=== PATIENT | female | born 1960 | race Native Hawaiian/Other Pacific Islander ===

== ENCOUNTER 2017-03-10 14:07 | Emergency (ER) | payer OTHER, MEDICAID ==
[2017-03-10 14:26] VITALS: RESP 16; TEMP 97.5
--- NOTE | 2017-03-10 14:34 | CPEKG ---
Heart Rate: 77 RR Interval: 779 P-R Interval: 180 QRSD Interval: 82 QT Interval: 384 QTC Interval: 435 P [place]: 23 QRS [place]: -6 T Wave [place]: 40 EKG Severity - NORMAL ECG - EKG Impression: SINUS RHYTHM Electronically Signed By: Jon Gerardo 10-Mar-2017 15:14:59
[2017-03-10] MEDS ORDERED: NS 1,000 ML IV ONE (15:11)
[2017-03-10] MEDS ORDERED: ASPIRIN 81 MG CHEWABLE TAB PO ONE (15:11)
[2017-03-10] MEDS ORDERED: HYDROmorphONE/DILAUDID 1 MG/ML SYR IVP ONE (15:12)
[2017-03-10 15:16] LABS: % IMMATURE GRANULYOCYTES 0.2 % (0.0-1.1); ABSOLUTE IMMATURE GRANULOCYTES 0.01 10^3/uL (0.00-0.10); ADD DIFF? NO; ADD MORPH? NO; ADD SCAN? NO; ATYPICAL LYMPHOCYTE FLAG 0 (0-99); FRAGMENT RBC FLAG 0 (0-99); HEMATOCRIT 40.5 % (38.0-47.0); LEFT SHIFT FLG 0 (0-99); LIPEMIA HEMOLYSIS FLAG 90 (0-99); MEAN CELL HEMOGLOBIN 30.6 pg (27.9-34.1); MEAN CELL HEMOGLOBIN CONCENTR. 34.6 g/dL (32.4-36.7); MEAN CELL VOLUME 88.4 fL (81.5-99.8); MEAN PLATELET VOLUME 10.2 fL (8.7-11.7); PLATELET CLUMPS FLAG 0 (0-99); PLATELET COUNT 192 10^3/uL (150-400); RED BLOOD CELL COUNT 4.58 10^6/uL (4.18-5.33)
--- NOTE | 2017-03-10 15:18 | EDPHY ---
H & P Stated Complaint: left hand numb and cramping and face numb x ~ 1 week. Time Seen by Provider: 03/10/17 14:59 HPI/ROS: CHIEF COMPLAINT: Left arm tingling and spasming HISTORY OF PRESENT ILLNESS: Patient is a 56-year-old female who comes to the emergency department complaining of left arm paresthesias intermittently over the last week. Currently she is asymptomatic. Today her episode was worse than previous and also included hyperventilation and carpopedal spasms. It was in both hands but worse in the left. She has never had these symptoms before. She denies any cardiac or pulmonary history. She did have a complicated course in 2013 after an abscessed pancreas and prolonged stay ICU but states that she has recovered well from this. She has not had a fever. She has not been ill recently. She denies nausea vomiting or diaphoresis. She states that the paresthesias extend up to her shoulder and neck. She denies any weakness during the episodes. She denies any specific positional changes or inciting factors. REVIEW OF SYSTEMS: Constitutional: denies: chills, fever, recent illness, recent injury EENTM: denies: blurred vision, double vision, nose congestion Respiratory: denies: cough, shortness of breath Cardiac: denies: chest pain, irregular heart rate, lightheadedness, palpitations Gastrointestinal/Abdominal: denies: abdominal pain, diarrhea, nausea, vomiting, blood streaked stools Genitourinary: denies: dysuria, frequency, hematuria, pain Musculoskeletal: denies: joint pain, muscle pain Skin: denies: lesions, rash, jaundice, bruising Neurological: See HPI Hematologic/Lymphatic: denies: blood clots, easy bleeding, easy bruising Immunologic/allergic: denies: HIV/AIDS, transplant EXAM: GENERAL: Well-appearing, well-nourished and in no acute distress. HEAD: Atraumatic, normocephalic. EYES: Pupils equal round and reactive to light, extraocular movements intact, sclera anicteric, conjunctiva are normal. ENT: TMs normal, nares patent, oropharynx clear without exudates. Moist mucous membranes. NECK: Normal range of motion, supple without lymphadenopathy or JVD. LUNGS: Breath sounds clear to auscultation bilaterally and equal. No wheezes rales or rhonchi. HEART: Regular rate and rhythm without murmurs, rubs or gallops. ABDOMEN: Soft, nontender, normoactive bowel sounds. No guarding, no rebound. No masses appreciated. BACK: No CVA tenderness, no spinal tenderness, step-offs or deformities EXTREMITIES: Normal range of motion, no pitting or edema. No clubbing or cyanosis. NEUROLOGICAL: Cranial nerves II through XII grossly intact. Normal speech, normal gait. 5/5 strength, normal movement in all extremities, normal sensation , normal reflexes PSYCH: Normal mood, normal affect. SKIN: Warm, dry, normal turgor, no visible rashes or lesions. Source: Patient Exam Limitations: No limitations - Personal History Current Tetanus/Diphtheria Vaccine: Unsure Current Tetanus Diphtheria and Acellular Pertussis (TDAP): Unsure - Medical/Surgical History Hx Asthma: Yes Hx Chronic Respiratory Disease: No Hx Diabetes: No Hx Cardiac Disease: No Hx Renal Disease: No Hx Cirrhosis: No Hx Alcoholism: No Hx HIV/AIDS: No Other PMH: pancreatitis 2013, hospitalized for 6 months. depression. trach. htn - Family History Significant Family History: No pertinent family hx - Social History Smoking Status: Former smoker Alcohol Use: Sober Drug Use: None Constitutional: Initial Vital Signs Temperature (C) 36.4 C 03/10/17 14:21 Heart Rate 80 03/10/17 14:21 Respiratory Rate 16 03/10/17 14:21 Blood Pressure 132/94 H 03/10/17 14:21 O2 Sat (%) 95 03/10/17 14:21 O2 Delivery Mode Room Air Allergies/Adverse Reactions: morphine Allergy (Verified 03/10/17 14:25) Home Medications: Medication Instructions Recorded Seraquel 02/25/11 Propranolol Sr [Inderal LA 60mg 60 mg PO 12/17/12 (RX)] Omeprazole 03/10/17 PHENTERMINE HCL 03/10/17 QUEtiapine FUMARATE 03/10/17 Topiramate 03/10/17 hydrOXYzine HCL 03/10/17 Medical Decision Making - Diagnostics EKG Interpretation: An EKG obtained and was read and documented in trace view. Please see trace view for full reading and report. Imaging Results: Imaging Impressions Chest X-Ray 03/10/17 15:12 Impression: No evidence for an acute cardiopulmonary abnormality. Chronic findings, as above. ED Course/Re-evaluation: 4:00 p.m. we discussed the patient's test results. She is currently asymptomatic. We discussed the possibilities. She states that she has chronic low back pain and some radiculopathy there. She may have some radiculopathy in her neck as well. No signs of stroke. NIH stroke score 0. No chest pain or shortness of breath. At this time she is eager to go home. Recommended follow up with her back specialist. She is agreeable with this. We also discussed techniques to prevent hyperventilation. Differential Diagnosis: Partial list of the Differential diagnosis considered include but were not limited to; radiculopathy, peripheral neuropathy, anxiety and although unlikely based on the history and physical exam, I also considered CVA, acute coronary disease, PE, electrolyte abnormality. I discussed these differential diagnoses and the plan with the patient as well as the usual and expected course. The patient understands that the diagnosis is provisional and that in medicine we are not always correct and that further workup is often warranted. Usual and customary warnings were given. All of the patient's questions were answered. The patient was instructed to return to the emergency department should the symptoms at all worsen or return, otherwise to followup with the physician as we discussed. - Data Points Laboratory Results: Laboratory Results 03/10/17 15:00 03/10/17 15:00 03/10/17 03/10/17 03/10/17 15:00 15:00 15:00 WBC 5.94 10^3/uL 10^3/uL (3.80-9.50) RBC 4.58 10^6/uL 10^6/uL (4.18-5.33) Hgb 14.0 g/dL g/dL (12.6-16.3) Hct 40.5 % % (38.0-47.0) MCV 88.4 fL fL (81.5-99.8) MCH 30.6 pg pg (27.9-34.1) MCHC 34.6 g/dL g/dL (32.4-36.7) RDW 13.0 % % (11.5-15.2) Plt Count 192 10^3/uL 10^3/uL (150-400) MPV 10.2 fL fL (8.7-11.7) Neut % (Auto) 64.4 % % (39.3-74.2) Lymph % (Auto) 27.1 % % (15.0-45.0) [place] % (Auto) 5.1 % % (4.5-13.0) Eos % (Auto) 2.9 % % (0.6-7.6) Baso % (Auto) 0.3 % % (0.3-1.7) Nucleat RBC Rel Count 0.0 % % (0.0-0.2) Absolute Neuts (auto) 3.83 10^3/uL 10^3/uL (1.70-6.50) Absolute Lymphs (auto) 1.61 10^3/uL 10^3/uL (1.00-3.00) Absolute Monos (auto) 0.30 10^3/uL 10^3/uL (0.30-0.80) Absolute Eos (auto) 0.17 10^3/uL 10^3/uL (0.03-0.40) Absolute Basos (auto) 0.02 10^3/uL 10^3/uL (0.02-0.10) Absolute Nucleated RBC 0.00 10^3/uL 10^3/uL (0-0.01) Immature Gran % 0.2 % % (0.0-1.1) Immature Gran # 0.01 10^3/uL 10^3/uL (0.00-0.10) PT 14.0 SEC SEC (12.0-15.0) INR 1.11 (0.83-1.16) APTT 31.2 SEC SEC (23.0-38.0) D-Dimer 0.37 ug/mLFEU ug/mLFEU (0.00-0.50) Sodium 142 mEq/L mEq/L (134-144) Potassium 3.8 mEq/L mEq/L (3.5-5.2) Chloride 106 mEq/L mEq/L (97-110) Carbon Dioxide 21 mEq/l L mEq/l (22-31) Anion Gap 15 mEq/L mEq/L (8-16) BUN 12 mg/dL mg/dL (7-23) Creatinine 1.0 mg/dL mg/dL (0.6-1.0) Estimated GFR 58 Glucose 102 mg/dL H mg/dL (70-100) Calcium 8.5 mg/dL mg/dL (8.5-10.4) Troponin I < 0.012 ng/mL ng/mL (0-0.034) Medications Given: Discontinued Medications Aspirin (Aspirin) 324 mg PO EDNOW ONE Stop: 03/10/17 15:12 Last Admin: 03/10/17 15:15 Dose: 324 mg Hydromorphone HCl (Dilaudid) 0.5 mg IVP EDNOW ONE Stop: 03/10/17 15:13 Last Admin: 03/10/17 15:15 Dose: 0.5 mg Sodium Chloride (Ns) 1,000 mls @ 0 mls/hr IV ONCE ONE PRN Reason: Wide Open Stop: 03/10/17 15:12 Last Admin: 03/10/17 15:15 Dose: 1,000 mls Departure - Departure Disposition: Home, Routine, Self-Care Clinical Impression: Paresthesia, Hyperventilation Condition: Fair Instructions: Hyperventilation (ED), Paresthesia (ED) Referrals: NADER CONDE,Karina [Primary Care Provider] - As per Instructions
[2017-03-10 15:20] LABS: INR 1.11 (0.83-1.16)
[2017-03-10 15:21] LABS: APTT 31.2 SEC (23.0-38.0)
[2017-03-10 15:22] LABS: ANION GAP 15 mEq/L (8-16); CALCIUM 8.5 mg/dL (8.5-10.4); CARBON DIOXIDE 21 mEq/l (22-31); CHLORIDE 106 mEq/L (97-110); GLOMERULAR FILTRATION RATE 58; GLUCOSE 102 mg/dL (70-100); POTASSIUM 3.8 mEq/L (3.5-5.2); SODIUM 142 mEq/L (134-144)
[2017-03-10 15:34] LABS: TROPONIN I < 0.012 ng/mL (0-0.034)
[2017-03-10 16:19] VITALS: BP 126/80; PULSE 75; O2SAT 94
== END 2017-03-10 16:07 | disposition home or self-care (01) ==
LOC: CED 14:07
DX: R20.2 Paresthesia of skin (principal); R06.4 Hyperventilation; J45.909 Unspecified asthma, uncomplicated; I10 Essential (primary) hypertension; Z87.891 Personal history of nicotine dependence
CPT/HCPCS: 71020; 93005; 96361; 96374; 99285; J1170; 80048-PO; 84484-PO; 85025-PO; 85378-PO; 85610-PO; 85730-PO

== ENCOUNTER 2018-02-02 16:50 | Emergency (ER) | payer OTHER, MEDICAID ==
--- NOTE | 2018-02-02 17:11 | EDPHY ---
H & P Time Seen by Provider: 02/02/18 17:10 HPI/ROS: Chief complaint. Burning with urination HPI. 57-year-old female presents with urinary frequency and burning with urination for 1 week. She had been treated for vaginal candidiasis about 1 month ago. Now she has had the burning and urinary frequency. She saw her PCP several days ago and apparently the urinalysis look fairly normal. She was started on nitrofurantoin and then discontinued by her PCP as the urine seem to look okay. No fever. No flank pain. No vomiting. Similar symptoms with UTIs in the past. ROS Constitutional. no fever/chills, no weakness Eyes. no problems with vision ENT. no sore throat, no nasal drainage Cardiovascular. no chest pain Respiratory. no shortness of breath, no cough Abdominal. no abdominal pain, no nausea/vomiting, no diarrhea . Urinary frequency and dysuria MS. no calf pain/swelling, no neck/back pain, no joint pain Skin. no rash Lymph. no swollen glands Neuro. no headache, no dizziness, no difficulty walking or with speech Past Medical/Surgical History: Pancreatitis, depression, hypertension Social History: Single, nonsmoker, no alcohol Smoking Status: Former smoker Physical Exam: General Appearance: Alert well-developed female mild distress vital signs are stable Eyes: Pupils equal and round no pallor or injection. ENT, Mouth: Mucous membranes are moist. Respiratory: There are no retractions, lungs are clear to auscultation. Cardiovascular: Regular rate and rhythm. Gastrointestinal: Mild suprapubic tenderness. No flank tenderness. No masses. Normal bowel sounds Neurological: Awake and alert, sensory and motor exams grossly normal. Skin: Warm and dry, no rashes. Musculoskeletal: Neck is supple nontender. Extremities symmetrical, full range of motion. Psychiatric: Patient is oriented X 3, there is no agitation. Constitutional: Initial Vital Signs Temperature (C) 36.9 C 02/02/18 17:01 Heart Rate 77 02/02/18 17:01 Respiratory Rate 16 02/02/18 17:01 Blood Pressure 142/98 H 02/02/18 17:01 O2 Sat (%) 98 02/02/18 17:01 O2 Delivery Mode Room Air Allergies/Adverse Reactions: morphine Allergy (Verified 02/02/18 17:06) Home Medications: Medication Instructions Recorded Propranolol Sr [Inderal LA 60mg 60 mg PO 12/17/12 (RX)] Omeprazole 03/10/17 QUEtiapine FUMARATE 03/10/17 Topiramate 03/10/17 hydrOXYzine HCL 03/10/17 Cephalexin [Keflex (*)] 500 mg PO TID #21 cap 02/02/18 Hycodan Syrup (*) 02/02/18 Lexapro 10 MG 02/02/18 Miconazole 02/02/18 Miconazole Nitrate [Monistat 7 100 mg VAG HS #7 supp 02/02/18 supp (*)] Nitrofurantoin 02/02/18 Medical Decision Making ED Course/Re-evaluation: On re-evaluation at 6:27 p.m. Patient is stable. Patient and I discussed laboratory evaluation, treatment plan including criteria for return importance of follow-up and further evaluation. She expresses understanding and agreement Differential Diagnosis: I considered urinary tract infection, STD, yeast infection - Data Points Laboratory Results: 02/02/18 02/02/18 18:00 17:25 Urine Color YELLOW Urine Appearance HAZY Urine pH 6.5 (5.0-7.5) Ur Specific [place] 1.020 (1.002-1.030) Urine Protein NEGATIVE (NEGATIVE) Urine Ketones NEGATIVE (NEGATIVE) Urine Blood NEGATIVE (NEGATIVE) Urine Nitrate NEGATIVE (NEGATIVE) Urine Bilirubin NEGATIVE (NEGATIVE) Urine Urobilinogen 2.0 EU H EU (0.2-1.0) Ur Leukocyte Esterase 1+ H (NEGATIVE) Urine RBC OCCASIONAL /hpf /hpf (0-3) Urine WBC 5-10 /hpf H /hpf (0-3) Ur Epithelial Cells 2+ /lpf H /lpf (NONE-1+) Urine Bacteria 2+ /hpf H /hpf (NONE SEEN) Urine Mucus 2+ /lpf H /lpf (NONE-1+) Urine Yeast OCCASIONAL /hpf H /hpf (NONE SEEN) Urine Glucose NEGATIVE (NEGATIVE) C.trachomatis RNA (TMA) Pending N.gonorrhoeae RNA (TMA) Pending Medications Given: Discontinued Medications Phenazopyridine HCl (Pyridium) 200 mg PO EDNOW ONE Stop: 02/02/18 17:18 Last Admin: 02/02/18 17:53 Dose: 200 mg Departure - Departure Disposition: Home, Routine, Self-Care Clinical Impression: Urinary tract infection Qualifiers: Urinary tract infection type: site unspecified Hematuria presence: without hematuria Qualified Code(s): N39.0 - Urinary tract infection, site not specified Condition: Good Instructions: Urinary Tract Infection in Women (ED), Yeast Infection (ED) Additional Instructions: Increased fluids. Cephalexin as antibiotic using 1 pill 3 times daily for the next week. Vaginal suppositories each night to help prevent yeast infection. Return for worsening symptoms including fever, flank pain, vomiting. Recheck in 2-3 days if not improved Referrals: AMAYA DOE [Other] - 2-3 days, if not improved Prescriptions: Cephalexin [Keflex (*)] 500 mg PO TID #21 cap Miconazole Nitrate [Monistat 7 supp (*)] 100 mg VAG HS #7 supp
[2018-02-02] MEDS ORDERED: PHENAZOPYRIDINE HCL 200 MG TAB PO ONE (17:17)
[2018-02-02 18:39] VITALS: BP 150/104
[2018-02-03 13:12] LABS: GC AMPLIFICATION GENPROBE NEGATIVE (NEGATIVE)
== END 2018-02-02 18:38 | disposition home or self-care (01) ==
LOC: CED 16:50
DX: N39.0 Urinary tract infection, site not specified (principal); I10 Essential (primary) hypertension; B96.89 Other specified bacterial agents as the cause of diseases classified elsewhere; Z87.891 Personal history of nicotine dependence
CPT/HCPCS: 81003-PO; 81015-PO

== ENCOUNTER 2018-03-09 17:33 | Emergency (ER) | payer OTHER, MEDICAID ==
[2018-03-09] MEDS ORDERED: NS 500 ML IV ONE ×3 (17:55→20:06)
[2018-03-09] MEDS ORDERED: ONDANSETRON 4 MG/2 ML VIAL IVP ONE (17:55)
[2018-03-09] MEDS ORDERED: LORazepam 2 MG/ML INJ IVP ONE (17:57)
[2018-03-09] MEDS ORDERED: MECLIZINE HCL 25 MG TAB PO ONE (17:58)
--- NOTE | 2018-03-09 18:14 | CPEKG ---
Heart Rate: 60 RR Interval: 1000 P-R Interval: 160 QRSD Interval: 84 QT Interval: 424 QTC Interval: 424 P [place]: 8 QRS [place]: -7 T Wave [place]: 39 EKG Severity - NORMAL ECG - EKG Impression: SINUS RHYTHM EKG Impression: Normal EKG. Electronically Signed By: Jasbir Dueñas 11-Mar-2018 08:54:55
--- NOTE | 2018-03-09 18:18 | EDPHY ---
H & P Time Seen by Provider: 03/09/18 17:41 HPI/ROS: CHIEF COMPLAINT: Dizziness, nausea HISTORY OF PRESENT ILLNESS: Patient states she had a sudden onset of dizziness after she was bending over to feed her grandson around 1 o'clock this afternoon. She describes the dizziness as spinning making it difficult to walk. Also nausea but no vomiting. Some sweatiness when the nausea is bad. She also states she developed a headache after this dizziness started. She denies any chest pain, no shortness of breath. No neck pain. No trauma. She was recently seen and treated for urinary tract infection which she she says has improved. REVIEW OF SYSTEMS: Constitutional: No fever, no chills. Eyes: No discharge. ENT: No sore throat. Cardiovascular: No chest pain, no palpitations. Respiratory: No cough, no shortness of breath. Gastrointestinal: No abdominal pain, no vomiting. Genitourinary: No dysuria. Musculoskeletal: No back pain. Skin: No rashes. Neurological: Dizziness headache per HPI, no weakness, no speech changes. General Appearance: Alert, moderate distress. Eyes: Pupils equal and round no pallor or injection. Some horizontal nystagmus. ENT, Mouth: Mucous membranes moist. Respiratory: There are no retractions, lungs are clear to auscultation. Cardiovascular: Regular rate and rhythm. Gastrointestinal: Abdomen is soft and nontender, no masses, bowel sounds normal. Neurological: Cranial nerves intact normal movement sensation all 4 extremities , no cerebellar deficits. Skin: Warm and dry, no rashes. Musculoskeletal: Neck is supple nontender. Extremities are symmetrical, full range of motion, no edema. Psychiatric: Patient is oriented X 3, there is no agitation. Medical/surgical history: Chronic pancreatitis, depression, recent UTI, hypertension. Social history: Nonsmoker lives at home, primary care at [facility]. Smoking Status: Former smoker Constitutional: Initial Vital Signs Temperature (C) 36.9 C 03/09/18 17:45 Heart Rate 65 03/09/18 17:45 Respiratory Rate 16 03/09/18 17:45 Blood Pressure 161/111 H 03/09/18 17:45 O2 Sat (%) 92 03/09/18 17:45 O2 Delivery Mode Room Air Allergies/Adverse Reactions: morphine Allergy (Verified 03/09/18 17:43) Home Medications: Medication Instructions Recorded Propranolol Sr [Inderal LA 60mg 60 mg PO 12/17/12 (RX)] Omeprazole 03/10/17 QUEtiapine FUMARATE 03/10/17 Topiramate 03/10/17 hydrOXYzine HCL 03/10/17 Lexapro 10 MG 02/02/18 Miconazole 02/02/18 Miconazole Nitrate [Monistat 7 100 mg VAG HS #7 supp 02/02/18 supp (*)] Nitrofurantoin 02/02/18 oxyCODONE CR [Oxycontin] 03/09/18 Medical Decision Making ED Course/Re-evaluation: 18:15 EKG shows normal sinus rhythm with normal intervals, axis. No ST T-wave changes to suggest ischemia or infarct. Impression normal EKG. See trace master. 6:45 p.m. recheck after medications. Patient feeling better, no longer nauseous , dizziness almost gone, headache mild. Blood pressure much improved. 7:50 p.m. still with mild dizziness when ambulatory, given further IV fluids, now improved. Differential Diagnosis: Differential diagnosis includes but is not limited to vertigo, acute coronary syndrome, gastroenteritis, CVA. After evaluation suspect benign positional vertigo with no signs of acute coronary syndrome, normal EKG and negative troponin. Vertigo more likely with horizontal nystagmus and symptoms very positional. Nausea but no vomiting. Ultimately able to walk in the emergency department without difficulty. Normal neurologic exam otherwise. Low suspicion for intracranial process such as tumor or stroke. No signs to suggest her urinary tract infection is worse in that she is afebrile without urinary complaints. Discussed the use of meclizine [id number] as outpatient if symptoms persist. Also recommended follow-up with primary care physician. Stable for discharge. - Data Points Laboratory Results: Laboratory Results 03/09/18 18:14 03/09/18 18:14 03/09/18 03/09/18 18:14 18:14 WBC 6.17 10^3/uL 10^3/uL (3.80-9.50) RBC 5.21 10^6/uL 10^6/uL (4.18-5.33) Hgb 15.8 g/dL g/dL (12.6-16.3) Hct 46.8 % % (38.0-47.0) MCV 89.8 fL fL (81.5-99.8) MCH 30.3 pg pg (27.9-34.1) MCHC 33.8 g/dL g/dL (32.4-36.7) RDW 13.2 % % (11.5-15.2) Plt Count 238 10^3/uL 10^3/uL (150-400) MPV 9.9 fL fL (8.7-11.7) Neut % (Auto) 63.0 % % (39.3-74.2) Lymph % (Auto) 28.5 % % (15.0-45.0) [place] % (Auto) 6.2 % % (4.5-13.0) Eos % (Auto) 1.5 % % (0.6-7.6) Baso % (Auto) 0.5 % % (0.3-1.7) Nucleat RBC Rel Count 0.0 % % (0.0-0.2) Absolute Neuts (auto) 3.89 10^3/uL 10^3/uL (1.70-6.50) Absolute Lymphs (auto) 1.76 10^3/uL 10^3/uL (1.00-3.00) Absolute Monos (auto) 0.38 10^3/uL 10^3/uL (0.30-0.80) Absolute Eos (auto) 0.09 10^3/uL 10^3/uL (0.03-0.40) Absolute Basos (auto) 0.03 10^3/uL 10^3/uL (0.02-0.10) Absolute Nucleated RBC 0.00 10^3/uL 10^3/uL (0-0.01) Immature Gran % 0.3 % % (0.0-1.1) Immature Gran # 0.02 10^3/uL 10^3/uL (0.00-0.10) Sodium 141 mEq/L mEq/L (135-145) Potassium 3.5 mEq/L mEq/L (3.3-5.0) Chloride 100 mEq/L mEq/L (97-110) Carbon Dioxide 28 mEq/l mEq/l (22-31) Anion Gap 13 mEq/L mEq/L (8-16) BUN 18 mg/dL mg/dL (7-23) Creatinine 0.7 mg/dL mg/dL (0.6-1.0) Estimated GFR > 60 Glucose 109 mg/dL H mg/dL (70-100) Calcium 9.6 mg/dL mg/dL (8.5-10.4) Troponin I < 0.012 ng/mL ng/mL (0.000-0.034) Medications Given: Discontinued Medications Acetaminophen (Tylenol) 1,000 mg PO EDNOW ONE Stop: 03/09/18 19:13 Last Admin: 03/09/18 19:24 Dose: 1,000 mg Sodium Chloride (Ns) 500 mls @ 0 mls/hr IV EDNOW ONE; Wide Open PRN Reason: Protocol Stop: 03/09/18 17:56 Last Admin: 03/09/18 18:11 Dose: 500 mls Sodium Chloride (Ns) 500 mls @ 1,500 mls/hr IV ONCE ONE Stop: 03/09/18 20:22 Last Admin: 03/09/18 20:09 Dose: 500 mls Sodium Chloride (Ns) 500 mls @ 1,000 mls/hr IV EDNOW ONE PRN Reason: Protocol Stop: 03/09/18 20:35 Last Admin: 03/09/18 20:09 Dose: Not Given Lorazepam (Ativan Injection) 0.5 mg IVP EDNOW ONE Stop: 03/09/18 17:58 Last Admin: 03/09/18 18:11 Dose: 0.5 mg Meclizine HCl (Meclizine Hcl) 50 mg PO EDNOW ONE Stop: 03/09/18 17:59 Last Admin: 03/09/18 18:11 Dose: 50 mg Ondansetron HCl (Zofran) 4 mg IVP EDNOW ONE Stop: 03/09/18 17:56 Last Admin: 03/09/18 18:11 Dose: 4 mg Ondansetron HCl (Zofran Odt 4 Mg Prepack#2) 1 btl TAKEHOME EDNOW ONE Stop: 03/09/18 20:55 Last Admin: 03/09/18 21:00 Dose: 1 btl Departure - Departure Disposition: Home, Routine, Self-Care Clinical Impression: Vertigo Condition: Fair Instructions: Vertigo (DC) Additional Instructions: Stay well hydrated, use meclizine, 50 mg every 6-8 hours [id number] as needed for dizziness. Be careful to change positions slowly. Follow up with your primary care physician in the next 3-5 days without fail. Return to the emergency department if you develops more serious symptoms. Referrals: NADER CONDE [Other] - As per Instructions
[2018-03-09 18:21] LABS: PLATELET COUNT 238 10^3/uL (150-400)
[2018-03-09] MEDS ORDERED: ACETAMINOPHEN 500 MG TAB PO ONE (19:12)
[2018-03-09] MEDS ORDERED: ONDANSETRON 4MG PREPACK#2 BTL TAKEHOME ONE (20:54)
[2018-03-09 21:01] VITALS: BP 146/87
== END 2018-03-09 21:03 | disposition home or self-care (01) ==
LOC: CED 17:33
DX: R42 Dizziness and giddiness (principal); E86.9 Volume depletion, unspecified; Z87.891 Personal history of nicotine dependence
CPT/HCPCS: 93005; 96361; 96374; 96375; 99284; J2060; J2405; 80048-PO; 84484-PO; 85025-PO